=== PATIENT | female | born 1955 | race Hispanic/Latino ===

== ENCOUNTER 2018-06-05 16:14 | Emergency (ER) | payer OTHER ==
[2018-06-05] MEDS ORDERED: Lorazepam 2 MG/ML VIAL ONE (16:25)
--- NOTE | 2018-06-05 16:38 | RAD ---
RADIOGRAPH CHEST 1 VIEW: 06/05/18 HISTORY: 62-year-old female with dyspnea and cough. FINDINGS: There are no air space densities, pulmonary edema, pneumothorax, or cardiomegaly. The lateral costop hrenic angles are sharp. IMPRESSION: No acute cardiopulmonary findings. jn [] POS: [facility]
== END 2018-06-05 17:20 | disposition home or self-care (01) ==
LOC: MADERS 16:14
DX: F41.9 Anxiety disorder, unspecified (principal); E03.9 Hypothyroidism, unspecified; I10 Essential (primary) hypertension; G47.00 Insomnia, unspecified; G47.30 Sleep apnea, unspecified; F32.9 Major depressive disorder, single episode, unspecified; Z79.899 Other long term (current) drug therapy
CPT/HCPCS: 71045; 93005; 96372; J2060